=== PATIENT | female | born 1980 | race African-American/Black ===

== ENCOUNTER 2018-06-01 06:30 | Emergency (ER) | payer MEDICAID, OTHER ==
[~2018-06-01] VITALS: Ht 160 cm; Wt 52.2 kg
--- NOTE | 2018-06-01 06:35 | NUR ---
PT IZAIAH FROM [facility] S/P WITNESSED SEIZURE. NO HX OF SEIZURE. +N/V. HEMATOMA NOTED ON FOREHEAD. BS 208 PER EMS. PT AOX4. NAD NOTED. RESP EVEN AND UNLABORED. [employer] AT BEDSIDE. PT ON MONITOR IN BED 2. WILL CONTINUE TO MONITOR.
[2018-06-01] MEDS ORDERED: ONDANSETRON HCL/PF 4 MG/2 ML VIAL IVP ONE (07:00)
[2018-06-01] MEDS ORDERED: IV NS 0.9% 1,000 ML BAG IV ONE (07:00)
[2018-06-01] MEDS ORDERED: LORAZEPAM INJ 2 MG/ML VIAL IVP ONE (07:00)
--- NOTE | 2018-06-01 07:05 | NUR ---
BLOOD DRAWN AND GIVEN TO LAB
[2018-06-01] MEDS ORDERED: LORAZEPAM INJ 2 MG/ML VIAL ONE (07:06)
[2018-06-01] MEDS ORDERED: ONDANSETRON HCL/PF 4 MG/2 ML VIAL ONE (07:06)
--- NOTE | 2018-06-01 07:17 | NUR ---
received report from franko HERNANDEZ for laura. [employer] at bedside. patient in no apparent distress noted.will continue to monitor accordingly.
[2018-06-01 07:19] LABS: BASOPHILS % (AUTO) 0.2 % (0.0-2.0); HEMATOCRIT 34 % (33-45); HEMOGLOBIN 11.1 g/dL (11.5-14.8); LYMPHOCYTES # (AUTO) 0.4 /CMM (0.8-4.8); MEAN CORPUSCULAR HGB CONC 32 g/dl (31.0-36.0); MEAN CORPUSCULAR VOLUME 94 fL (82-100); MONOCYTES # (AUTO) 0.4 /CMM (0.1-1.30); MONOCYTES % (AUTO) 9.1 % (2.0-12.0); NEUTROPHILS # (AUTO) 3.7 /CMM (1.8-8.9); NEUTROPHILS % (AUTO) 82.7 % (43.0-81.0); PLATELET COUNT (AUTO) 186 /CMM (150-450); RED BLOOD CELL COUNT(AUTO) 3.65 MIL/uL (4.0-5.2); WHITE BLOOD COUNT (AUTO) 4.4 K/uL (4.3-11.0)
[2018-06-01 07:30] LABS: CREATININE 0.6 mg/dL (0.6-1.3); POTASSIUM 3.5 mmol/L (3.5-5.1)
[2018-06-01 07:37] LABS: ALBUMIN 3.9 g/dL (3.4-5.0); BILIRUBIN,DIRECT 0.1 mg/dL (0.0-0.2); BILIRUBIN,TOTAL 0.4 mg/dL (0.2-1.0)
--- NOTE | 2018-06-01 07:41 | NUR ---
urine collected and sent to lab.
--- NOTE | 2018-06-01 08:02 | NUR ---
patient wheeled to radiology for ct scan.
--- NOTE | 2018-06-01 08:11 | NUR ---
patient came back from ct.
[2018-06-01] MEDS ORDERED: ACETAMINOPHEN ES 500 MG TABLET ONE (09:44)
[2018-06-01 09:47] VITALS: BP 135/71
--- NOTE | 2018-06-01 09:49 | NUR ---
Patient discharged to police custody in stable condition. Written and verbal after care instructions given. Patient verbalizes understanding of instruction.IV removed. Catheter intact and site benign. Pressure and 4x4 applied to site. No bleeding noted. escorted by [employer].
[2018-06-01] MEDS ORDERED: ACETAMINOPHEN ES 500 MG TABLET PO ONE (10:00)
== END 2018-06-01 09:47 ==
LOC: ER 06:32
DX: S00.83XA Contusion of other part of head, initial encounter (principal); F10.239 Alcohol dependence with withdrawal, unspecified; R56.9 Unspecified convulsions; R74.0 Nonspecific elevation of levels of transaminase and lactic acid dehydrogenase [LDH]; W19.XXXA Unspecified fall, initial encounter; Y93.89 Activity, other specified; Y92.89 Other specified places as the place of occurrence of the external cause; Y99.8 Other external cause status
CPT/HCPCS: 36415; 70450; 80048; 80076; 84702; 85025; 96361; 96374; 96375; 99284; A4606; J2060; J2405; J7030; Z7610

== ENCOUNTER 2018-07-02 20:13 | Emergency (ER) | payer OTHER ==
[~2018-07-02] VITALS: Ht 165.1 cm; Wt 54.9 kg
[2018-07-02 20:13] VITALS: BP 150/89
[2018-07-02 20:46] LABS: BASOPHILS # (AUTO) 0.1 /CMM (0.0-0.2); BASOPHILS % (AUTO) 1.3 % (0.0-2.0); EOSINOPHILS % (AUTO) 1.1 % (0.0-6.0); HEMATOCRIT 31 % (33-45); HEMOGLOBIN 9.8 g/dL (11.5-14.8); LYMPHOCYTES # (AUTO) 1.9 /CMM (0.8-4.8); LYMPHOCYTES % (AUTO) 36.2 % (20.0-44.0); MEAN CORPUSCULAR HGB CONC 32 g/dl (31.0-36.0); MEAN CORPUSCULAR VOLUME 92 fL (82-100); MONOCYTES # (AUTO) 0.8 /CMM (0.1-1.30); MONOCYTES % (AUTO) 16.3 % (2.0-12.0); NEUTROPHILS # (AUTO) 2.3 /CMM (1.8-8.9); NEUTROPHILS % (AUTO) 45.1 % (43.0-81.0); PLATELET COUNT (AUTO) 307 /CMM (150-450); RED BLOOD CELL COUNT(AUTO) 3.36 MIL/uL (4.0-5.2); WHITE BLOOD COUNT (AUTO) 5.2 K/uL (4.3-11.0)
[2018-07-02 21:18] LABS: LYMPHOCYTES % (MANUAL) 37 % (16-48); NEUTROPHILS % (MANUAL) 48 (42-76)
[2018-07-02 21:19] LABS: EOSINOPHILS % (MANUAL) 3 % (0-4); MONOCYTES % (MANUAL) 12 % (0-11.0)
[2018-07-02] MEDS ORDERED: CYANOCOBALAMIN 500 MCG TABLET PO STA (21:25)
[2018-07-02] MEDS ORDERED: FERROUS SULFATE (325 MG) 325 MG/TAB TABLET PO STA (21:25)
[2018-07-02] MEDS ORDERED: CYANOCOBALAMIN 500 MCG TABLET ONE (21:51)
[2018-07-02] MEDS ORDERED: FERROUS SULFATE (325 MG) 325 MG/TAB TABLET ONE (21:52)
== END 2018-07-02 22:13 ==
LOC: ER 20:15
DX: D64.9 Anemia, unspecified (principal); Z60.2 Problems related to living alone
CPT/HCPCS: 36415; 84702; 85025; 99283; A4606